=== PATIENT | male | born 1990 | race Caucasian/White ===

== ENCOUNTER → 2019-09-03 12:44 | Day surgery (SDC) | payer OTHER ==
[~2019-09-03 12:44] MED LIST: Buffered Lidocaine 1% SYRIN* 1 ML/SYRINGE INTRADERM ONE; Dexamethasone IV* 4 MG/ML 1 ML (4 MG) IV SLOW PU ONE; Dexamethasone IV* 4 MG/ML 1 ML (4 MG) ONE; DiMENhydriNATE IV* 50 MG/ML VIAL IV PUSH PRN; Famotidine IV* 10 MG/ML 2 ML (20 mg) IV ONE; Famotidine IV* 10 MG/ML 2 ML (20 mg) ONE; Ketorolac INJ* 30 MG/ML 1 ML VIAL ONE; Lactated Ringers 1000 ML Bag* 1,000 ML IV SCH; Lidocaine 2% PF * 5 ML VIAL ONE; Midazolam* 1 MG/ML 5 ML VIAL (5 MG) ONE; Naloxone* 0.4 MG/ML 1 ML VIAL IV PRN; Ondansetron INJ* 2 MG/ML VIAL IV PRN; Ondansetron INJ* 2 MG/ML VIAL ONE; Propofol* 10 MG/ML 20 ML BTL ONE; Rocuronium* 10 MG/ML VIAL ONE; Scopolamine 1.5 mg* PATCH TRANSDERM PRN; Sugammadex * 200 MG/2 ML VIAL IV PUSH ONE; ceFAZolin 2 GM PREMIX in ORs 2 GM/50 ML BAG ONE; fentaNYL* 50 MCG/ML 2 ML VIAL (100 MCG VIAL) IV PRN; fentaNYL* 50 MCG/ML 2 ML VIAL (100 MCG VIAL) ONE; fentaNYL* 50 MCG/ML 5 ML VIAL (250 MCG VIAL) ONE; oxyCODONE/Acetamin 5/325 MG* TAB ONE; oxyCODONE/Acetamin 5/325 MG* TAB PO PRN
[2019-09-03 19:11] VITALS: BP 150/112
--- NOTE | 2019-09-04 02:26 | OP ---
DATE OF OPERATION: 09/03/19 [facility] DATE OF : 89 SURGEON: Dr. To Avila. CHIMNEY REPAIRER: HUAN Anthony. A physician anesthesiologist assistant was required for the length of procedure for patient positioning, retraction, instrumentation, and closure. ANESTHESIOLOGIST: Dr. Watt. ANESTHESIA: General anesthesia, local anesthesia consisting of 10 cc of Marcaine, 0.25% with epinephrine. PRE-OP DIAGNOSIS: Right elbow lateral epicondylitis. POST-OP DIAGNOSIS: Right elbow lateral epicondylitis. OPERATIVE PROCEDURE: 1. Open debridement, right elbow extensor carpi radialis brevis tendon. 2. Open repair, right elbow common extensor tendon. ANTIBIOTICS: Ancef 2 g IV. IV FLUIDS: See Anesthesia note. [id number]-[id number] TIME: 48 minutes. TOURNIQUET TIME: 52 minutes at 250 mmHg, right upper arm tourniquet. SPECIMEN: None. IMPLANTS: Mitek Gryphon double loaded suture anchor. ESTIMATED BLOOD LOSS: Minimal. COMPLICATIONS: None. 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 The patient has been treated with a full spectrum of nonoperative treatment as detailed in my history and physical note. He was insufficiently responsive to this and opted for surgery. MRI showed fluid and degeneration about the ECRB tendon origin. Discussed risks and potential complications of surgery and postoperative recovery process. DESCRIPTION OF PROCEDURE: In preoperative holding, the patient signed a written consent. Operative extremity was marked in preoperative holding. The patient was taken back to the operating room on the stretcher. Hand table was applied to the stretcher. The patient was sedated and intubated. Initially, an LMA was placed but then anesthesia changed that to an endotracheal tube. Tourniquet was applied to the right upper arm and then the right upper extremity was prepped and draped. Surgical time-out was performed. Esmarch was applied and the tourniquet was elevated. I made an oblique, slightly, longitudinal skin incision overlying the lateral aspect of the elbow with the elbow in a position of 90 degrees of flexion. Dissected down to the fascial layer. Stopped a tiny amount of bleeding with bipolar electro-cautery. Identified in the fascial layer the interval in between the ECRL and the EDC tendons. I made a longitudinal incision between these two and extended it proximally to the level of the linette-shaped origin of the ECRB tendon and the lateral epicondyle. Retracted the ECRL and EDC. Revealed it did the origin of the ERCP as well as the diseased ECRB tissue, much of which had pulled off of its origin. I lightly debrided the ECRB diseased tissue with a 15 blade using the so-called scratch test. Also used curette and rongeur. The elbow capsule was respected. I debrided the bony origin of the tendon with a curette and rongeur. I placed a Mitek Gryphon suture anchor. I placed a horizontal mattress stitch into the ECRB tendon. Placed another pair of sutures from the anchor through the EDC tendon posterior to the split. The suture that I had used to repair the ECRB tendon, I then used those [address] a simple stitch connecting the ECRL to the EDC. This was effectively 3 stitches, horizontal mattress, and simple from the suture anchor and I was very happy with that repair. I closed the longitudinal fascial incision with a running stitch using Vicryl 0 suture. This would be watertight. We next closed the subcutaneous tissue with buried simple stitches using Vicryl 3.0 suture. Subcuticular closure with a running stitch using Monocryl 3.0 suture. Mastisol, Steri-Strips, and 10 cc of local anesthesia placed. 4x4's, Sterile Webril. I next applied a short posterior slab and a lateral oblique slab plaster splint and overwrapped it with an Adam bandage. Sling applied. The patient was awakened, extubated, and transferred to the PACU. DISPOSITION: The patient will receive antibiotics for 3 days as prophylaxis. Percocet as needed for pain control. He will follow up in approximately 7 days in clinic to remove the splint and place him in wrist brace, which he will be in for upto 6 weeks postoperatively. The patient will use the sling as needed for now. [id number] #: [id number] MTDD
== END | disposition home or self-care (01) ==
LOC: OR 12:44
PROVIDERS: ATTEND Orthopaedic Surgery
DX: M77.11 Lateral epicondylitis, right elbow (principal)
CPT/HCPCS: A9270-GY; J0690; J1100; J1885; J2250; J2405; J2704; J3010